=== PATIENT | female | born 1940 | race Caucasian/White ===

== ENCOUNTER → 2018-05-12 | Outpatient (CLI) | payer MEDICARE, BC | END | disposition home or self-care (01) | LOC: LABPAT 06:40 | PROVIDERS: ATTEND Orthopaedic Surgery | DX: Z01.812 Encounter for preprocedural laboratory examination (principal); M16.12 Unilateral primary osteoarthritis, left hip | CPT/HCPCS: 87070 ==

== ENCOUNTER → 2018-05-12 | Outpatient (CLI) | payer MEDICARE, BC ==
[2018-05-12 07:37] LABS: ALT 41 U/L (9-52); AST 27 U/L (14-36); Albumin 4.4 g/dL (3.5-5.0); Alkaline Phosphatase 65 U/L (38-126); Anion Gap 11 mmol/L; Blood Urea Nitrogen 13 mg/dL (7-17); Calcium 9.5 mg/dL (8.4-10.2); Carbon Dioxide 28 mmol/L (22-30); Chloride 103 mmol/L (98-107); Cholesterol 191 mg/dL (<200); Glucose 158 mg/dL (74-99); HDL Cholesterol 42 mg/dL (40-60); LDL Cholesterol,Calculated 96 mg/dL (0-99); Potassium 4.4 mmol/L (3.5-5.1); Sodium 142 mmol/L (137-145); Total Bilirubin 0.3 mg/dL (0.2-1.3); Total Protein 6.7 g/dL (6.3-8.2); Triglycerides 263 mg/dL (<150)
[2018-05-12 16:32] LABS: Hemoglobin A1C 6.6 % (4.0-6.0)
== END | disposition home or self-care (01) ==
LOC: LABWHC1 06:43
PROVIDERS: ATTEND Family Medicine
DX: E11.9 Type 2 diabetes mellitus without complications (principal); E78.5 Hyperlipidemia, unspecified
CPT/HCPCS: 36415; 80053; 80061; 83036

== ENCOUNTER → 2018-05-16 | Outpatient (CLI) | payer MEDICARE, BC ==
[2018-05-16 08:41] LABS: Basophils # (A) 0.1 k/uL (0-0.2); Basophils % (A) 1 %; Eosinophils # (A) 0.1 k/uL (0-0.7); Eosinophils % (A) 1 %; HCT 39.8 % (34.0-46.0); HGB 13.3 gm/dL (11.4-16.0); Lymphocytes # (A) 1.5 k/uL (1.0-4.8); Lymphocytes % (A) 28 %; MCH 30.3 pg (25.0-35.0); MCHC 33.5 g/dL (31.0-37.0); MCV 90.6 fL (80.0-100.0); Monocytes # (A) 0.3 k/uL (0-1.0); Monocytes % (A) 6 %; Neutrophils # (A) 3.4 k/uL (1.3-7.7); Neutrophils % (A) 63 %; Platelet Count 307 k/uL (150-450); RDW 13.1 % (11.5-15.5); WBC 5.4 k/uL (3.8-10.6)
== END | disposition home or self-care (01) ==
LOC: LABPAT 08:21
PROVIDERS: ATTEND Anesthesiology
DX: Z01.812 Encounter for preprocedural laboratory examination (principal); Z51.81 Encounter for therapeutic drug level monitoring; Z79.01 Long term (current) use of anticoagulants
CPT/HCPCS: 36415; 85025; 85610

== ENCOUNTER → 2018-05-16 | Outpatient (CLI) | payer MEDICARE, BC ==
--- NOTE | 2018-05-16 09:49 | US ---
EXAMINATION TYPE: US carotid duplex BILAT DATE OF EXAM: 05/16/2018 COMPARISON: NONE CLINICAL HISTORY: E78.5 HYPERLIPIDS,I71.4 AAA. Hyperlipids, pre op hip surgery EXAM MEASUREMENTS: RIGHT: Peak Systolic Velocity (PSV) cm/sec ----- Right CCA: 89.7 ----- Right ICA: 117.3 ----- Right ECA: 64.2 ICA/CCA ratio: 1.3 RIGHT: End Diastole cm/sec ----- Right CCA: 25.9 ----- Right ICA: 43.0 ----- Right ECA: 8.4 LEFT: Peak Systolic Velocity (PSV) cm/sec ----- Left CCA: 90.8 ----- Left ICA: 130.2 ----- Left ECA: 78.7 ICA/CCA ratio: 1.4 LEFT: End Diastole cm/sec ----- Left CCA: 25.9 ----- Left ICA: 43.0 ----- Left ECA: 12.8 VERTEBRALS (direction of flow): Right Vertebral: Antegrade Left Vertebral: Antegrade Rhythm: Normal Mild plaque bilateral bifurcations. No evidence of significant stenosis IMPRESSION: Mild degree of grayscale atheromatous plaquing with no sonographically evident hemodynam ically significant stenosis within either visualized carotid arterial system. However overall value s approach 50% stenosis for both the left and right internal carotid artery.
--- NOTE | 2018-05-16 09:50 | US ---
EXAMINATION TYPE: US duplex aorta DATE OF EXAM: 05/16/2018 COMPARISON: NONE CLINICAL HISTORY: I71.4 AAA. Hyperlipids, pre op hip surgery EXAM MEASUREMENTS: Abdominal Aorta: Proximal: 1.6 x 1.9cm Mid: 1.5 x 1.5cm Distal: 1.2 x 1.4cm Bifurcation: RT: 0.9 x 0.9cm LT: 0.8 x 0.8cm Calcifications noted throughout. No evidence of AAA at this time IMPRESSION: Calcific atheromatous change within the abdominal aorta with no sonographic evidence of a bdominal aortic aneurysm in the visualized portions of the abdominal aorta.
== END | disposition home or self-care (01) ==
LOC: RADUSWWP 08:30
PROVIDERS: ATTEND Family Medicine
DX: I70.0 Atherosclerosis of aorta (principal); I65.23 Occlusion and stenosis of bilateral carotid arteries; E78.5 Hyperlipidemia, unspecified
CPT/HCPCS: 93880; 93979

== ENCOUNTER 2018-05-22 05:33 | Inpatient (IN) | payer MEDICARE, BC ==
[2018-05-12 11:51] VITALS: BMI 25.7
--- NOTE | 2018-05-21 10:41 | HP ---
HISTORY AND PHYSICAL Deepti Wahl is a 77-year-old patient seen with symptomatic right hip osteoarthritis. Treatment options were discussed with her. She elected to proceed with direct anterior right total hip arthroplasty. Consent was obtained. Medical clearance provided by Dr. Gonzalez. PAST MEDICAL HISTORY: Uzn-[id number] diabetes, hypertension, hyperlipidemia. PAST SURGICAL HISTORY: Noncontributory. DAILY MEDICATIONS: Aspirin, Januvia, metformin, simvastatin, tramadol. ALLERGIES: ALLERGIES ARE CODEINE, DEMEROL, NSAID, CYMBALTA, LODINE. SOCIAL HISTORY: Patient denies current tobacco use. PHYSICAL EXAMINATION: Evaluation of the right hip, there is limited range of motion. Diffuse tenderness. The range of motion is with severe pain. Positive impingement sign. Straight leg raise negative. Distal neurovascular exam intact. RADIOGRAPHS: Which were obtained of the right hip reveals severe osteoarthritis. IMPRESSION: 1. Right hip osteoarthritis. 2. Hyperlipidemia. 3. Zkf-jbehpss-zcyhudyvn diabetes. 4. Hypertension. PLAN: Direct anterior right total hip arthroplasty. Surgery is 05/22/2018. MMODL / IJN: [id number] /
[~2018-05-22 05:33] MED LIST: ACETAMINOPHEN TAB 500 MG TAB PO ONE; DEXAMETHASONE SOD PHOSPHATE 10 MG/ML 1 ML VIAL IV ONE; MIDAZOLAM 2 MG/2 ML VIAL IV PRN; SCOPOLAMINE 1.5MG/72HR PATCH TRANSDERM ONE; TRANEXAMIC ACID 1,000 MG in SODIUM CHLORIDE 0.9% 50 ML IVPB ONE; ceFAZolin IN SWFI 2 GM/20 ML SYRINGE IVP ONE; fentaNYL (PF) 50 MCG/ML 2 ML AMP IV PRN
[2018-05-22] MEDS ORDERED: LIDOCAINE 1% 20 ML VIAL (10MG/ML) FOR IV START INTRADERMA ONE (06:38)
[2018-05-22] MEDS: LACTATED RINGERS 1,000 ML IV SCH ×3 (06:38→21:08)
[2018-05-22 06:54] LABS: Glucose,Whole Blood 167 mg/dL (75-99)
[2018-05-22] MEDS: ONDANSETRON 4 MG/2 ML VIAL IVP ONE ×2 (07:00→10:05)
[2018-05-22] MEDS ORDERED: ROPIVACAINE 246.25 MG, EPINEPHrine 0.5 MG, KETOROLAC 30 MG, cloNIDine HCL/PF 80 MCG, WA... MISCELLANE ONE ×5 (07:20)
[2018-05-22] MEDS ORDERED: diphenhydrAMINE 50 MG/ML 1 ML VIAL ONE (07:29)
[2018-05-22] MEDS ORDERED: fentaNYL (PF) 50 MCG/ML 2 ML AMP ONE (07:29)
[2018-05-22] MEDS ORDERED: MIDAZOLAM 2 MG/2 ML VIAL ONE (07:29)
[2018-05-22] MEDS ORDERED: PROPOFOL 10 MG/ML 20 ML VIAL IV ONE (07:29)
[2018-05-22] MEDS ORDERED: ePHEDrine SULFATE/0.9% NACL/PF 50 MG/5 ML SYRINGE IV ONE (07:29)
[2018-05-22] MEDS ORDERED: ceFAZolin 3,000 MG in SODIUM CHLORIDE 0.9% IRRIGATIO 3,000 ML IRRIGATION ONE (08:08)
[2018-05-22] MEDS ORDERED: LACTATED RINGERS 1,000 ML IV ONE ×2 (09:04)
[2018-05-22] MEDS ORDERED: HYDROmorphone 0.5 MG/0.5 ML SYRINGE IVP PRN ×3 (09:38)
[2018-05-22] MEDS ORDERED: NALOXONE 0.4 MG/ML 1 ML VIAL IV PRN (09:38)
[2018-05-22] MEDS ORDERED: HYDROcodone/APAP 7.5-325MG 1 EACH TAB PO PRN ×2 (09:38)
--- NOTE | 2018-05-22 09:38 | P.OP ---
Date of Procedure: 05/22/18 Preoperative Diagnosis: Right hip osteoarthritis Postoperative Diagnosis: Right hip osteoarthritis Procedure(s) Performed: Direct anterior right total hip arthroplasty Implants: 1. Depuy Corail KA size 10 standard collar press-fit femoral stem 2. Depuy pinnacle acetabular shell press-fit 54 mm 3. Depuy pinnacle polyethylene acetabular liner 36 mm ID 54 mm OD 4. Depuy metal femoral head 36 mm -2 Anesthesia: local, spinal Surgeon: Rashid Livingston Sales Account Associate #1: Ray Curtis Estimated Blood Loss (ml): 600 Pathology: other (Heidi head) Condition: stable Disposition: PACU Indications for Procedure: 77-year-old patient seen with symptomatic right hip osteoarthritis. After having treatment options discussed, she elected to proceed with total hip arthroplasty. Operative Findings: See description of procedure Description of Procedure: The patient was taken to the operative suite. Patient underwent a spinal anesthetic by the department of anesthesia. Patient was then transferred to the [place] table. Patient was given preoperative IV antibiotics and TXA. Both lower extremities were placed in standard leg spars. The hip was then prepped and draped in the normal sterile orthopedic fashion. A standard anterior incision was made beginning 3 cm lateral and 1 cm distal to the ASIS extending 10 cm. Dissection was then carried down through the subcutaneous soft tissues down to the fascia overlying the tensor fascia tory. An incision was now made through the fascia. Careful dissection was taken down exposing the tensor fascia tory muscle. A Cobra retractor was now placed along the medial femoral neck and a second one along the lateral femoral neck. The venous circumflex vessels were now identified, cauterized and clipped. We identified the anterior hip capsule. An incision was made through the hip capsule along the lateral border. Tag sutures were then placed along the anterior capsule and lateral capsule. We then performed a capsulotomy. Retractors were now placed around the femoral neck itself. A Cobra retractor was now placed along the anterior acetabulum. Good exposure was now noted of the femoral head/neck complex. Residual labrum was debrided out. We placed the extremity into 3 turns of fine traction. We were then able to introduce a skid in between the femoral head and acetabulum. A placed a awl into the femoral head. We took 2 turns of traction off the extremity. Rotation was now released. The femoral head was then dislocated without difficulty. Additional releasing was performed of the capsule. The head was then reduced. All traction was released. A femoral neck cut was now made with a sagittal saw. It was completed with an osteotome at the lateral neck area. The femoral head was now removed without difficulty. The extremity was now rotated to 45 of external rotation. It was locked in position. Residual labrum was now debrided out. Serial reaming was performed of the acetabulum. Once we reached the appropriate size and a trial was position and fit nicely. The appropriate size was now chosen opened and made available. The wound was irrigated with pulse lavage mechanical irrigation. Acetabular component was introduced into the acetabulum without difficulty. The C-arm/fluoroscopy was now brought into the operative field. We made sure we had a true AP pelvic view. We now under direct C-arm/fluoroscopy introduced into the acetabular component with appropriate version and inclination. It was well seated and stable. The C-arm was pulled back. An appropriate liner was introduced and clicked into position. It was felt to be stable. At this point retractors were removed. The extremity was now placed into 120 external rotation with no traction. The leg was now dropped to the ground and adducted. Appropriate retractors were now positioned along the proximal femur. We also placed our femoral look into position. Additional capsular releasing was performed to gain access to the proximal femur. We now used a box osteotome. A canal finder was now utilized. Serial broaching was now performed until we reached the appropriate size with good overall rotational stability. Appropriate calcar planing was performed. A trial head/neck was placed into position. The hip was now reduced. The C-arm /fluoroscopy was brought back into the operative field. A spot film was obtained of the nonoperative hip. A spot film was obtained of the trial components. Overlays were performed, we noted good overall alignment and positioning for determining leg length. The C-arm/fluoroscopy was pulled back. Retractors were repositioned and the hip was dislocated. The leg was again taken down to the ground and adducted. Appropriate retractors were repositioned as well as the femoral hook. All trial components were removed. The femoral implant was opened along with the femoral head. The wound was irrigated with pulse lavage mechanical irrigation. The deep soft tissues were infiltrated with local analgesic. The femoral implant was introduced with good purchase and fixation noted. The femoral head was introduced with good positioning and fixation noted. Retractors were now removed. The hip was now reduced. There appeared be good positioning of the hip. This was confirmed under direct fluoroscopy spot films were obtained to document that. A second gram of TXA was given. The wound was irrigated with pulse lavage mechanical irrigation. Bipolar cautery had been utilized intermittently through the procedure for hemostasis. The wound was irrigated copiously with pulse lavage mechanical irrigation. The fascia was repaired with Vicryl suture. The subcutaneous soft tissues were repaired in layers with Vicryl suture. The skin was approximated with pernio/Dermabond. Sterile dressings were applied. Patient was then awakened, transferred to a bed and taken to recovery in stable condition. Ray ESTRADA assisted with the procedure.
--- NOTE | 2018-05-22 09:46 | FL ---
EXAMINATION TYPE: FL guidance operating room, XR Hip Limited RT DATE OF EXAM: 05/22/2018 CLINICAL HISTORY: Right hip arthroplasty. Right hip pain. TECHNIQUE: Fluoroscopy. COMPARISON: None. FINDINGS/IMPRESSION: Fluoroscopic guidance was provided during procedure performed by Dr. Livingston. A total of 21 seconds of fluoroscopic time was utilized during the procedure and 3 spot images was acquired during a total right hip arthroplasty.
[2018-05-22] MEDS: HYDROmorphone 0.5 MG/0.5 ML SYRINGE IVP ONE ×2 (10:04→10:12)
[2018-05-22 10:11] LABS: Glucose,Whole Blood 182 mg/dL (75-99)
[2018-05-22] MEDS: traMADol 50 MG TAB PO SCH ×3 (13:15→21:16)
[2018-05-22] MEDS: ONDANSETRON 4 MG/2 ML VIAL IVP PRN (13:16)
[2018-05-22] MEDS ORDERED: POLYETHYLENE GLYCOL 3350 17 GM POWD.PACK PO PRN (14:00)
[2018-05-22 17:01] LABS: Glucose,Whole Blood 226 mg/dL (75-99)
[2018-05-22] MEDS: ceFAZolin IN SWFI 2 GM/20 ML SYRINGE IVP SCH ×2 (17:21→23:00)
[2018-05-22] MEDS: INSULIN ASPART 100 UNIT/ML 1 ML 10 ML VIAL SQ SCH ×2 (17:55→21:06)
[2018-05-22 20:07] LABS: Glucose,Whole Blood 207 mg/dL (75-99)
[2018-05-22] MEDS: traMADol 50 MG TAB PO PRN (21:05)
[2018-05-22] MEDS: SENNOSIDES-DOCUSATE SODIUM 1 EACH TAB PO SCH (21:06)
[2018-05-22] MEDS: LACTATED RINGERS 250 ML IV SCH ×2 (21:14→21:15)
[2018-05-23] MEDS: LACTATED RINGERS 1,000 ML IV SCH ×3 (05:28→20:10)
[2018-05-23] MEDS: traMADol 50 MG TAB PO PRN (06:32)
[2018-05-23 06:59] LABS: Glucose,Whole Blood 131 mg/dL (75-99)
[2018-05-23] MEDS: INSULIN ASPART 100 UNIT/ML 1 ML 10 ML VIAL SQ SCH ×4 (07:36→20:09)
[2018-05-23] MEDS: traMADol 50 MG TAB PO SCH ×4 (08:53→21:28)
--- NOTE | 2018-05-23 08:55 | P.PN ---
Subjective Progress Note Date: 05/23/18 Principal diagnosis: Status post right total hip arthroplasty Patient is seen today resting in her hospital bed, she appears comfortable. She did have some increasing pain yesterday, this has improved. She denies any headaches, creams, chest pain or shortness breath. Objective - Vital Signs Vital signs: Vital Signs Temp 98.3 F 05/23/18 06:54 Pulse 85 05/23/18 06:54 Resp 12 05/23/18 06:54 BP 106/61 05/23/18 06:54 Pulse Ox 97 05/23/18 06:54 Intake & Output 05/22/18 05/23/18 05/23/18 18:59 06:59 18:59 Intake Total 1351 818 Output Total 900 Balance 451 818 Weight 63.957 kg Intake: IV 1351 Intake, IV Titration 700 Amount Lactated Ringers 1,000 ml 700 @ 100 mls/hr IV .Q10H [facility] Rx#:[id number] Oral 118 Output: Urine 300 Estimated Blood Loss 600 Other: Voiding Method Bedside Commode # Voids 1 - Exam Right lower extremity: Incision is clean, dry, and intact. The prineo tape is in good condition. There is minimal soft tissue swelling and ecchymosis surrounding the medial and lateral aspects of the incision. Calf is soft, no tenderness with palpation. Plantar flexion, dorsiflexion, EHL, FHL are intact. Sensory exam to light touch throughout the extremity is intact, dorsal pedis pulses 2+. - Labs Labs: Abnormal Lab Results - Last 24 Hours (Table) 05/22/18 05/22/18 05/22/18 Range/Units 10:10 16:58 20:04 POC Glucose (mg/dL) 182 H 226 H 207 H (75-99) mg/dL 05/23/18 Range/Units 06:53 POC Glucose (mg/dL) 131 H (75-99) mg/dL Assessment and Plan Plan: Assessment: 1. Postop day #1 status post right total hip arthroplasty Plan: Pain control, continue supportive oral medication GI and DVT prophylaxis, continue subcu medication Wound care instructions discussed Continue therapy Medical recommendations Encourage incentive spirometer Discharge planning: Patient will likely be discharged to rehab in next few days Time with Patient: Less than 30
[2018-05-23] MEDS: ATORVASTATIN 10 MG TAB PO SCH (08:56)
[2018-05-23] MEDS: LINAGLIPTIN 5 MG TABLET PO SCH (08:56)
[2018-05-23] MEDS: FAMOTIDINE 20 MG TAB PO SCH (08:57)
[2018-05-23] MEDS: ENOXAPARIN 40 MG/0.4 ML SYRINGE SQ SCH (08:57)
[2018-05-23] MEDS: MELOXICAM 7.5 MG TAB PO SCH (08:57)
[2018-05-23] MEDS: metFORMIN 500 MG TAB PO SCH (08:58)
--- NOTE | 2018-05-23 09:14 | P.CONS ---
History of Present Illness - Reason for Consult Consult date: 05/23/18 Medical Management Requesting physician: Rashid Livingston - Chief Complaint s/p right FELIX - History of Present Illness 77-year-old female who underwent elective right total hip arthroplasty on 05/22/[address]. Gonzalez was consulted for medical management. The patient has a history of diabetes mellitus, fibromyalgia, back pain, and anxiety. The patient is a former cigarette smoker and quit smoking in 1989. The patient was seen and examined at the bedside. The patient is awake and alert laying in bed. She states she was up this morning walking and was feeling well and her pain was minimal. She reports a couple hours later she began to have a significant increase in her pain and required medication. She states her pain at this time is tolerable. She denies chest pain or shortness of breath. She remains hemodynamically stable. She is afebrile. She is on room air with oxygen saturations greater than 92%. Incentive spirometer is at the bedside and patient reports using 10 times an hour. She is tolerating PO intake and denies nausea or vomiting. Dressing to right hip is clean dry and intact. The patient reports she is going to subacute rehab at [facility] on . Review of Systems Those systems with pertinent positive or pertinent negative responses have been documented in the HPI Past Medical History Past Medical History: Diabetes Mellitus, Fibromyalgia Additional Past Medical History / Comment(s): arthralgia, back pain, hx vertigo. , uses cane prn. History of Any Multi-Drug Resistant Organisms: None Reported Past Surgical History: No Surgical Hx Reported Additional Past Surgical History / Comment(s): cataracts Past Anesthesia/Blood Transfusion Reactions: No Reported Reaction, Motion Sickness Past Psychological History: No Psychological Hx Reported Additional Psychological History / Comment(s): recent anxiety Smoking Status: Former smoker Past Alcohol Use History: None Reported Additional Past Alcohol Use History / Comment(s): QUIT SMOKING 1989, SMOKED 1 PPD. SMOKED 10 YRS OR MORE. Past Drug Use History: None Reported - Past Family History Mother Family Medical History: Pulmonary Embolus Medications and Allergies Home Medications Medication Instructions Recorded Confirmed Type Aspirin 81 mg PO DAILY 11/13/14 05/22/18 History L.acidoph/B.long/L.plant/B.lac 1 tab PO DAILY 11/13/14 05/22/18 History [Probiotic Acidophilus Beads] traMADol HCl [Ultram] 50 mg PO Q8HR PRN 11/13/14 05/22/18 History metFORMIN HCL [Glucophage] 500 mg PO QAM 02/13/15 05/22/18 History Methylprednisone Injection 1 dose PO DIRECTED 05/12/18 05/22/18 History Multivit-Min/FA/Lycopen/Lutein 1 tab PO DAILY 05/12/18 05/22/18 History [Centrum Silver Tablet] Polyethylene Glycol 3350 [Miralax] 17 gm PO DAILY PRN 05/12/18 05/22/18 History Simvastatin [Zocor] 20 mg PO DAILY 05/12/18 05/22/18 History Timolol 0.5% Ophth Soln [Timoptic 1 drop RIGHT EYE DAILY 05/12/18 05/22/18 History 0.5% Ophth Soln] sitaGLIPtin [Januvia] 100 mg PO DAILY 05/12/18 05/22/18 History Allergies Allergy/AdvReac Type Severity Reaction Status Date / Time codeine Allergy Nausea & Verified 05/22/18 09:56 Vomiting & Diarrhea, Headache meperidine HCl [From Demerol] Allergy Nausea & Verified 05/22/18 09:56 Vomiting & Diarrhea, Headache acetaminophen [From Tylenol] AdvReac Unknown Nausea Verified 05/22/18 09:56 duloxetine [From Cymbalta] AdvReac Unknown Nausea & Verified 05/22/18 09:56 Vomiting & Diarrhea, Headache NSAIDS (Non-Steroidal AdvReac Unknown Nausea & Verified 05/22/18 09:56 Anti-Inflamma Vomiting & Diarrhea etodolac AdvReac Nausea & Verified 05/22/18 09:56 Vomiting & Diarrhea, Headache Physical Exam Vitals: Vital Signs Temp Pulse Resp BP BP Pulse Ox 05/23/18 06:54 98.3 F 85 12 106/61 97 05/23/18 00:27 97.9 F 87 16 106/51 97 05/22/18 21:53 104/50 05/22/18 19:30 97.1 F L 88 14 96/53 94 L 05/22/18 15:45 16 05/22/18 14:50 85 16 118/56 95 05/22/18 13:00 82 110/69 93 L 05/22/18 12:59 79 113/71 98 05/22/18 12:00 79 114/70 98 05/22/18 11:45 78 136/78 98 05/22/18 11:30 81 134/76 98 05/22/18 11:15 80 129/72 05/22/18 11:05 16 05/22/18 11:00 86 118/83 05/22/18 10:45 81 127/75 92 L 05/22/18 10:30 51 L 16 117/63 93 L 05/22/18 10:16 74 16 122/58 95 05/22/18 10:00 76 16 127/62 98 05/22/18 09:48 976 F H 86 16 123/58 97 Intake and Output 05/22/18 05/23/18 05/23/18 22:59 06:59 14:59 Intake Total 118 700 Output Total 300 Balance -182 700 Intake: Intake, IV Titration 700 Amount Lactated Ringers 1,000 ml 700 @ 100 mls/hr IV .Q10H [facility] Rx#:[id number] Oral 118 Output: Urine 300 Other: Voiding Method Bedside Commode # Voids 1 1 GENERAL: This is a 77-year-old female in no apparent distress at the time of examination. Pleasant and cooperative. HEENT: Head is atraumatic, normocephalic. Pupils are equal, round, and reactive to light. Sclerae anicteric. Conjunctivae are clear. Mucus membranes of the mouth are moist. Neck is supple. RESPIRATORY: Clear to ausculation. No wheezes, rales, or rhonchi. No use of accessory muscles. Patient maintaining oxygen saturation greater than 92%. No chest wall tenderness is noted on palpation or with deep breathing. CARDIOVASCULAR: Regular rate and rhythm. S1 and S2 noted. No systolic or diastolic murmur auscultated. No JVD noted. No S3 or S4 noted. GASTROINTESTINAL: No distention noted. Abdomen soft and round. Normal active bowel sounds auscultated x 4 quadrants. No pain or tenderness noted upon palpation. INTEGUMENTARY: Dressing to right hip clean dry and intact. No drainage noted. No cyanosis. No jaundice. No rashes noted. No cellulitis noted. EXTREMITIES: 2+ peripheral pulses. No evidence of peripheral edema. No calf tenderness noted. NEUROLOGIC: Cranial nerves II-XII intact. PSYCHIATRIC: Awake, alert, and oriented X 3. Appropriate affect. Intact judgement and insight. Results Results: ASSESSMENT: Osteoarthritis, s/p right total hip arthroplasty, POD #1 Diabetes mellitus, type II Hyperlipidemia History of fibromyalgia Nicotine dependence, in remission, patient quit smoking in 1989 PLAN: Continue postoperative surgical care per orthopedics Pain control Activity as tolerated Incentive spirometer 10 times an hour while awake Home meds as appropriate GI prophylaxis: Pepcid 20 mg by mouth daily DVT prophylaxis: Lovenox 40 mg subcu daily Monitor vital signs and address as appropriate Discharge planning: Subacute rehab at [facility] on Further recommendations pending patient's course Thank you for this consultation. We will continue to follow with Deepti during her hospital stay Nurse practitioner note has been reviewed by physician. Signing provider agrees with the documented findings, assessment, and plan of care. Labs: Abnormal Lab Results - Last 24 Hours (Table) 05/22/18 05/22/18 05/22/18 Range/Units 10:10 16:58 20:04 POC Glucose (mg/dL) 182 H 226 H 207 H (75-99) mg/dL 05/23/18 Range/Units 06:53 POC Glucose (mg/dL) 131 H (75-99) mg/dL
[2018-05-23] MEDS: TIMOLOL 0.5% OPHTH DROPS 5 ML BTL RIGHT EYE SCH (09:25)
[2018-05-23 09:52] LABS: Basophils % (A) 0 %; Eosinophils % (A) 0 %; HCT 27.3 % (34.0-46.0); Lymphocytes # (A) 2.3 k/uL (1.0-4.8); Lymphocytes % (A) 23 %; MCH 30.4 pg (25.0-35.0); MCHC 33.4 g/dL (31.0-37.0); Mean Platelet Volume 6.8; Monocytes # (A) 0.5 k/uL (0-1.0); Monocytes % (A) 5 %; Neutrophils # (A) 7.4 k/uL (1.3-7.7); Neutrophils % (A) 72 %; Platelet Count 278 k/uL (150-450); RDW 13.1 % (11.5-15.5); WBC 10.3 k/uL (3.8-10.6)
[2018-05-23 09:55] LABS: HGB 9.1 gm/dL (11.4-16.0)
[2018-05-23 11:05] LABS: Glucose,Whole Blood 142 mg/dL (75-99)
[2018-05-23] MEDS: LACTOBACILLUS ACIDOPH & BULGAR 1 EACH PACKET PO SCH (11:13)
[2018-05-23 16:36] LABS: Hemoglobin A1C 6.7 % (4.0-6.0)
[2018-05-23 16:55] LABS: Glucose,Whole Blood 162 mg/dL (75-99)
[2018-05-23 20:02] LABS: Glucose,Whole Blood 172 mg/dL (75-99)
[2018-05-23] MEDS: SENNOSIDES-DOCUSATE SODIUM 1 EACH TAB PO SCH (20:11)
[2018-05-24] MEDS ORDERED: ONDANSETRON 4 MG/2 ML VIAL ONE (04:55)
[2018-05-24] MEDS: LACTATED RINGERS 1,000 ML IV SCH ×3 (05:51→17:39)
[2018-05-24 07:17] LABS: Glucose,Whole Blood 118 mg/dL (75-99)
[2018-05-24] MEDS: INSULIN ASPART 100 UNIT/ML 1 ML 10 ML VIAL SQ SCH ×4 (07:37→21:11)
[2018-05-24] MEDS ORDERED: ACETAMINOPHEN TAB 325 MG TAB PO PRN (08:24)
[2018-05-24] MEDS: FAMOTIDINE 20 MG TAB PO SCH (08:33)
[2018-05-24] MEDS: ATORVASTATIN 10 MG TAB PO SCH (08:33)
[2018-05-24] MEDS: ENOXAPARIN 40 MG/0.4 ML SYRINGE SQ SCH (08:33)
[2018-05-24] MEDS: LINAGLIPTIN 5 MG TABLET PO SCH (08:34)
[2018-05-24] MEDS: MELOXICAM 7.5 MG TAB PO SCH (08:34)
[2018-05-24] MEDS: metFORMIN 500 MG TAB PO SCH (08:34)
[2018-05-24] MEDS: TIMOLOL 0.5% OPHTH DROPS 5 ML BTL RIGHT EYE SCH (08:35)
[2018-05-24] MEDS: traMADol 50 MG TAB PO SCH ×4 (08:36→21:20)
[2018-05-24] MEDS: ONDANSETRON 4 MG/2 ML VIAL IVP PRN (08:41)
[2018-05-24 08:55] LABS: Basophils % (A) 0 %; Eosinophils # (A) 0.1 k/uL (0-0.7); Eosinophils % (A) 1 %; HCT 23.1 % (34.0-46.0); HGB 7.8 gm/dL (11.4-16.0); Lymphocytes # (A) 1.2 k/uL (1.0-4.8); Lymphocytes % (A) 20 %; MCH 30.3 pg (25.0-35.0); MCHC 33.5 g/dL (31.0-37.0); MCV 90.4 fL (80.0-100.0); Mean Platelet Volume 6.9; Monocytes # (A) 0.4 k/uL (0-1.0); Monocytes % (A) 7 %; Neutrophils # (A) 4.4 k/uL (1.3-7.7); Neutrophils % (A) 71 %; Platelet Count 197 k/uL (150-450); RBC 2.56 m/uL (3.80-5.40); WBC 6.1 k/uL (3.8-10.6)
[2018-05-24 09:11] LABS: Anion Gap 8 mmol/L; Blood Urea Nitrogen 7 mg/dL (7-17); Carbon Dioxide 28 mmol/L (22-30); Chloride 101 mmol/L (98-107); Glucose 110 mg/dL (74-99); Potassium 3.7 mmol/L (3.5-5.1); Sodium 137 mmol/L (137-145)
--- NOTE | 2018-05-24 10:32 | P.PN ---
Subjective Progress Note Date: 05/24/18 77-year-old female who underwent elective right total hip arthroplasty on 05/22/[address] Gonzalez was consulted for medical management. The patient has a history of diabetes mellitus, fibromyalgia, back pain, and anxiety. The patient is a former cigarette smoker and quit smoking in 1989. 05/23/2018 The patient was seen and examined at the bedside. The patient is awake and alert laying in bed. She states she was up this morning walking and was feeling well and her pain was minimal. She reports a couple hours later she began to have a significant increase in her pain and required medication. She states her pain at this time is tolerable. She denies chest pain or shortness of breath. She remains hemodynamically stable. She is afebrile. She is on room air with oxygen saturations greater than 92%. Incentive spirometer is at the bedside and patient reports using 10 times an hour. She is tolerating PO intake and denies nausea or vomiting. Dressing to right hip is clean dry and intact. The patient reports she is going to subacute rehab at [facility] on . 05/24/2018 Patient seen and examined at the bedside. Patient states she has been nausea all night and does not feel well this morning. She states she feels dizzy every time she gets up to ambulate. She has IV fluids infusing at 100cc/hr. She states she has been urinating often without difficulty. Patient was in the 80s on room air this morning and nasal cannula was applied. Febrile at 100.2 this AM. BP 110/71. Objective - Vital Signs Vital signs: Vital Signs Temp 100.2 F H 05/24/18 08:23 Pulse 94 05/24/18 08:23 Resp 18 05/24/18 08:23 BP 110/71 05/24/18 08:23 Pulse Ox 90 L 05/24/18 08:23 Intake & Output 05/23/18 05/24/18 05/24/18 18:59 06:59 18:59 Intake Total 800 1720 Balance 800 1720 Intake: Intake, IV Titration 800 1600 Amount Lactated Ringers 1,000 ml 800 1600 @ 100 mls/hr IV .Q10H [facility] Rx#:[id number] Oral 120 Other: # Voids 2 2 - Exam GENERAL: This is a 77-year-old female in no apparent distress at the time of examination. Pleasant and cooperative. HEENT: Head is atraumatic, normocephalic. Pupils are equal, round, and reactive to light. Sclerae anicteric. Conjunctivae are clear. Mucus membranes of the mouth are moist. Neck is supple. RESPIRATORY: Clear to ausculation. No wheezes, rales, or rhonchi. No use of accessory muscles. Patient maintaining oxygen saturation greater than 92%. No chest wall tenderness is noted on palpation or with deep breathing. CARDIOVASCULAR: Regular rate and rhythm. S1 and S2 noted. No systolic or diastolic murmur auscultated. No JVD noted. No S3 or S4 noted. GASTROINTESTINAL: No distention noted. Abdomen soft and round. Normal active bowel sounds auscultated x 4 quadrants. No pain or tenderness noted upon palpation. INTEGUMENTARY: Patient appears pale overall. Dressing to right hip clean dry and intact. No drainage noted. No cyanosis. No jaundice. No rashes noted. No cellulitis noted. EXTREMITIES: 2+ peripheral pulses. No evidence of peripheral edema. No calf tenderness noted. NEUROLOGIC: Cranial nerves II-XII intact. PSYCHIATRIC: Awake, alert, and oriented X 3. Appropriate affect. Intact judgement and insight. - Labs CBC & Chem 7: 05/24/18 08:35 05/24/18 08:35 Labs: Abnormal Lab Results - Last 24 Hours (Table) 05/23/18 05/23/18 05/23/18 Range/Units 09:13 11:02 16:52 RBC (3.80-5.40) m/uL Hgb (11.4-16.0) gm/dL Hct (34.0-46.0) % Creatinine (0.52-1.04) mg/dL Glucose (74-99) mg/dL POC Glucose (mg/dL) 142 H 162 H (75-99) mg/dL Hemoglobin A1c 6.7 H (4.0-6.0) % Calcium (8.4-10.2) mg/dL 05/23/18 05/24/18 05/24/18 Range/Units 19:59 07:09 08:35 RBC 2.56 L (3.80-5.40) m/uL Hgb 7.8 L (11.4-16.0) gm/dL Hct 23.1 L (34.0-46.0) % Creatinine (0.52-1.04) mg/dL Glucose (74-99) mg/dL POC Glucose (mg/dL) 172 H 118 H (75-99) mg/dL Hemoglobin A1c (4.0-6.0) % Calcium (8.4-10.2) mg/dL 05/24/18 Range/Units 08:35 RBC (3.80-5.40) m/uL Hgb (11.4-16.0) gm/dL Hct (34.0-46.0) % Creatinine 0.49 L (0.52-1.04) mg/dL Glucose 110 H (74-99) mg/dL POC Glucose (mg/dL) (75-99) mg/dL Hemoglobin A1c (4.0-6.0) % Calcium 8.0 L (8.4-10.2) mg/dL Assessment and Plan Plan: ASSESSMENT: Osteoarthritis, s/p right total hip arthroplasty, POD #2 Anemia, suspect due to acute blood loss, hemoglobin 7.8 Diabetes mellitus, type II Hyperlipidemia History of fibromyalgia Nicotine dependence, in remission, patient quit smoking in 1989 PLAN: Continue postoperative surgical care per orthopedics Pain control Activity as tolerated Incentive spirometer 10 times an hour while awake Transfuse 1 unit RBC. Repeat hemoglobin in AM Continue IV fluids but will decrease to 50cc/hr Wean oxygen as tolerated to maintain sats greater than 92% Chest x-ray Continue anti-emetics Home meds as appropriate GI prophylaxis: Pepcid 20 mg by mouth daily DVT prophylaxis: Lovenox 40 mg subcu daily Monitor vital signs and address as appropriate Discharge planning: Subacute rehab at [facility] Further recommendations pending patient's course Nurse practitioner note has been reviewed by physician. Signing provider agrees with the documented findings, assessment, and plan of care.
--- NOTE | 2018-05-24 10:54 | P.PN ---
Subjective Progress Note Date: 05/24/18 Principal diagnosis: Status post right total hip arthroplasty Patient is seen today resting in her hospital bed, she appears comfortable. Early this morning patient developed severe nausea, it is slightly improving. She remains on IV fluids at this time. She denies any headaches, chest pain or shortness breath. Objective - Vital Signs Vital signs: Vital Signs Temp 100.2 F H 05/24/18 08:23 Pulse 94 05/24/18 08:23 Resp 18 05/24/18 08:23 BP 110/71 05/24/18 08:23 Pulse Ox 90 L 05/24/18 08:23 Intake & Output 05/23/18 05/24/18 05/24/18 18:59 06:59 18:59 Intake Total 800 1720 Balance 800 1720 Intake: Intake, IV Titration 800 1600 Amount Lactated Ringers 1,000 ml 800 1600 @ 100 mls/hr IV .Q10H [facility] Rx#:[id number] Oral 120 Other: # Voids 2 2 - Exam Right lower extremity: Incision is clean, dry, and intact. The prineo tape is in good condition. There is minimal soft tissue swelling and ecchymosis surrounding the medial and lateral aspects of the incision. Calf is soft, no tenderness with palpation. Plantar flexion, dorsiflexion, EHL, FHL are intact. Sensory exam to light touch throughout the extremity is intact, dorsal pedis pulses 2+. - Labs CBC & Chem 7: 05/24/18 08:35 05/24/18 08:35 Labs: Abnormal Lab Results - Last 24 Hours (Table) 05/23/18 05/23/18 05/23/18 Range/Units 09:13 11:02 16:52 RBC (3.80-5.40) m/uL Hgb (11.4-16.0) gm/dL Hct (34.0-46.0) % Creatinine (0.52-1.04) mg/dL Glucose (74-99) mg/dL POC Glucose (mg/dL) 142 H 162 H (75-99) mg/dL Hemoglobin A1c 6.7 H (4.0-6.0) % Calcium (8.4-10.2) mg/dL 05/23/18 05/24/18 05/24/18 Range/Units 19:59 07:09 08:35 RBC 2.56 L (3.80-5.40) m/uL Hgb 7.8 L (11.4-16.0) gm/dL Hct 23.1 L (34.0-46.0) % Creatinine (0.52-1.04) mg/dL Glucose (74-99) mg/dL POC Glucose (mg/dL) 172 H 118 H (75-99) mg/dL Hemoglobin A1c (4.0-6.0) % Calcium (8.4-10.2) mg/dL 05/24/18 Range/Units 08:35 RBC (3.80-5.40) m/uL Hgb (11.4-16.0) gm/dL Hct (34.0-46.0) % Creatinine 0.49 L (0.52-1.04) mg/dL Glucose 110 H (74-99) mg/dL POC Glucose (mg/dL) (75-99) mg/dL Hemoglobin A1c (4.0-6.0) % Calcium 8.0 L (8.4-10.2) mg/dL Assessment and Plan Plan: Assessment: 1. Postop day #2 status post right total hip arthroplasty Plan: Pain control, continue supportive oral medication GI and DVT prophylaxis, continue subcu medication Wound care instructions discussed Continue therapy Medical recommendations Encourage incentive spirometer Discharge planning: Hopeful discharge to rehab tomorrow Time with Patient: Less than 30
[2018-05-24 11:26] LABS: Glucose,Whole Blood 148 mg/dL (75-99)
[2018-05-24] MEDS: LACTOBACILLUS ACIDOPH & BULGAR 1 EACH PACKET PO SCH (12:31)
--- NOTE | 2018-05-24 13:02 | XR ---
EXAMINATION TYPE: XR chest 2V DATE OF EXAM: 05/24/2018 COMPARISON: 11/13/2014 HISTORY: 77-year-old female hypoxia TECHNIQUE: PA and lateral views FINDINGS: Heart normal size. Aorta and pulmonary vasculature are within normal limits. Mild interstitial promin ence as a chronic appearance. No significant pleural effusion seen on the lateral view. There is some mild patchy right mid and lower lung density. IMPRESSION: Patchy right mid and lower lung density could represent areas of atelectasis or developing pneumonia. Clinically correlate. Follow-up could be considered.
[2018-05-24 16:52] LABS: Glucose,Whole Blood 145 mg/dL (75-99)
[2018-05-24 18:47] LABS: Basophils % (A) 1 %; Eosinophils % (A) 0 %; HCT 30.2 % (34.0-46.0); Lymphocytes # (A) 2.1 k/uL (1.0-4.8); Lymphocytes % (A) 28 %; MCH 29.8 pg (25.0-35.0); MCHC 33.2 g/dL (31.0-37.0); MCV 89.6 fL (80.0-100.0); Mean Platelet Volume 6.7; Monocytes # (A) 0.4 k/uL (0-1.0); Monocytes % (A) 5 %; Neutrophils # (A) 4.9 k/uL (1.3-7.7); Neutrophils % (A) 65 %; Platelet Count 217 k/uL (150-450); RBC 3.37 m/uL (3.80-5.40); RDW 13.8 % (11.5-15.5); WBC 7.6 k/uL (3.8-10.6)
[2018-05-24 18:53] LABS: Anion Gap 6 mmol/L; Blood Urea Nitrogen 7 mg/dL (7-17); Calcium 8.6 mg/dL (8.4-10.2); Carbon Dioxide 29 mmol/L (22-30); Chloride 101 mmol/L (98-107); Glucose 123 mg/dL (74-99); Potassium 3.7 mmol/L (3.5-5.1); Sodium 136 mmol/L (137-145)
[2018-05-24 20:39] LABS: Glucose,Whole Blood 121 mg/dL (75-99)
[2018-05-24] MEDS: SENNOSIDES-DOCUSATE SODIUM 1 EACH TAB PO SCH (21:20)
[2018-05-25] MEDS: ONDANSETRON 4 MG/2 ML VIAL IVP PRN (00:13)
[2018-05-25] MEDS: LACTATED RINGERS 1,000 ML IV SCH (05:39)
[2018-05-25 06:56] LABS: Glucose,Whole Blood 96 mg/dL (75-99)
[2018-05-25] MEDS: INSULIN ASPART 100 UNIT/ML 1 ML 10 ML VIAL SQ SCH ×4 (07:12→22:33)
[2018-05-25 07:27] LABS: Basophils % (A) 0 %; Eosinophils # (A) 0.1 k/uL (0-0.7); Eosinophils % (A) 1 %; HCT 29.5 % (34.0-46.0); HGB 9.6 gm/dL (11.4-16.0); Lymphocytes # (A) 1.8 k/uL (1.0-4.8); Lymphocytes % (A) 26 %; MCH 29.3 pg (25.0-35.0); MCHC 32.7 g/dL (31.0-37.0); MCV 89.7 fL (80.0-100.0); Mean Platelet Volume 7.1; Monocytes # (A) 0.5 k/uL (0-1.0); Monocytes % (A) 7 %; Neutrophils # (A) 4.3 k/uL (1.3-7.7); Neutrophils % (A) 64 %; Platelet Count 193 k/uL (150-450); RBC 3.29 m/uL (3.80-5.40); RDW 13.9 % (11.5-15.5); WBC 6.7 k/uL (3.8-10.6)
[2018-05-25] MEDS ORDERED: ONDANSETRON 4 MG/2 ML VIAL IVP PRN (08:15)
[2018-05-25] MEDS: ENOXAPARIN 40 MG/0.4 ML SYRINGE SQ SCH (08:26)
[2018-05-25] MEDS: FAMOTIDINE 20 MG TAB PO SCH (08:26)
[2018-05-25] MEDS: ATORVASTATIN 10 MG TAB PO SCH (08:26)
[2018-05-25] MEDS: traMADol 50 MG TAB PO SCH ×2 (08:26→12:16)
[2018-05-25] MEDS: TIMOLOL 0.5% OPHTH DROPS 5 ML BTL RIGHT EYE SCH (08:26)
[2018-05-25] MEDS: metFORMIN 500 MG TAB PO SCH (08:27)
[2018-05-25] MEDS: LINAGLIPTIN 5 MG TABLET PO SCH (08:27)
[2018-05-25] MEDS: MELOXICAM 7.5 MG TAB PO SCH (08:27)
[2018-05-25] MEDS: SODIUM CHLORIDE 0.9% 1,000 ML IV SCH (08:42)
--- NOTE | 2018-05-25 09:06 | P.PN ---
Subjective Progress Note Date: 05/25/18 Principal diagnosis: Status post right total hip arthroplasty Patient is seen today resting in her hospital bed, she appears comfortable. Patient continues to be nauseous, we discontinued most of her pain medication. She has taken tramadol occasionally, I will discontinue that at this time. Patient states she hasn't had a bowel movement since 05/21/2018, she also hasn' t had much to it at this time. She denies any headaches, chest pain or shortness breath. Objective - Vital Signs Vital signs: Vital Signs Temp 97.9 F 05/25/18 07:26 Pulse 80 05/25/18 07:26 Resp 16 05/25/18 07:26 BP 121/56 05/25/18 07:26 Pulse Ox 95 05/25/18 07:26 Intake & Output 05/24/18 05/25/18 05/25/18 18:59 06:59 18:59 Intake Total 1350 500 Balance 1350 500 Intake: Intake, IV Titration 800 Amount Lactated Ringers 1,000 ml 800 @ 50 mls/hr IV .Q20H [facility] Rx#:[id number] Oral 240 500 Blood Product 310 Rc As-3 Unit 310 [id number] Other: Voiding Method Bedside Commode Bedside Commode # Voids 1 - Exam Right lower extremity: Incision is clean, dry, and intact. The prineo tape is in good condition. There is minimal soft tissue swelling and ecchymosis surrounding the medial and lateral aspects of the incision. Calf is soft, no tenderness with palpation. Plantar flexion, dorsiflexion, EHL, FHL are intact. Sensory exam to light touch throughout the extremity is intact, dorsal pedis pulses 2+. - Labs CBC & Chem 7: 05/25/18 06:58 05/24/18 18:16 Labs: Abnormal Lab Results - Last 24 Hours (Table) 05/24/18 05/24/18 05/24/18 Range/Units 08:35 10:42 11:23 RBC (3.80-5.40) m/uL Hgb (11.4-16.0) gm/dL Hct (34.0-46.0) % Sodium (137-145) mmol/L Creatinine 0.49 L (0.52-1.04) mg/dL Glucose 110 H (74-99) mg/dL POC Glucose (mg/dL) 148 H (75-99) mg/dL Calcium 8.0 L (8.4-10.2) mg/dL Crossmatch See Detail 05/24/18 05/24/18 05/24/18 Range/Units 16:47 18:16 18:16 RBC 3.37 L (3.80-5.40) m/uL Hgb 10.0 L D (11.4-16.0) gm/dL Hct 30.2 L (34.0-46.0) % Sodium 136 L (137-145) mmol/L Creatinine 0.50 L (0.52-1.04) mg/dL Glucose 123 H (74-99) mg/dL POC Glucose (mg/dL) 145 H (75-99) mg/dL Calcium (8.4-10.2) mg/dL Crossmatch 05/24/18 05/25/18 Range/Units 20:30 06:58 RBC 3.29 L (3.80-5.40) m/uL Hgb 9.6 L (11.4-16.0) gm/dL Hct 29.5 L (34.0-46.0) % Sodium (137-145) mmol/L Creatinine (0.52-1.04) mg/dL Glucose (74-99) mg/dL POC Glucose (mg/dL) 121 H (75-99) mg/dL Calcium (8.4-10.2) mg/dL Crossmatch Assessment and Plan Plan: Assessment: 1. Postop day #3 status post right total hip arthroplasty Plan: Pain control, hold narcotics at this time GI and DVT prophylaxis, continue subcu medication Wound care instructions discussed Continue therapy Medical recommendations Encourage incentive spirometer Discharge planning: Hopeful discharge to rehab tomorrow Time with Patient: Less than 30
--- NOTE | 2018-05-25 09:15 | P.PN ---
Subjective Progress Note Date: 05/25/18 77-year-old female who underwent elective right total hip arthroplasty on 05/22/[address] Gonzalez was consulted for medical management. The patient has a history of diabetes mellitus, fibromyalgia, back pain, and anxiety. The patient is a former cigarette smoker and quit smoking in 1989. 05/23/2018 The patient was seen and examined at the bedside. The patient is awake and alert laying in bed. She states she was up this morning walking and was feeling well and her pain was minimal. She reports a couple hours later she began to have a significant increase in her pain and required medication. She states her pain at this time is tolerable. She denies chest pain or shortness of breath. She remains hemodynamically stable. She is afebrile. She is on room air with oxygen saturations greater than 92%. Incentive spirometer is at the bedside and patient reports using 10 times an hour. She is tolerating PO intake and denies nausea or vomiting. Dressing to right hip is clean dry and intact. The patient reports she is going to subacute rehab at [facility] on . 05/24/2018 Patient seen and examined at the bedside. Patient states she has been nausea all night and does not feel well this morning. She states she feels dizzy every time she gets up to ambulate. She has IV fluids infusing at 100cc/hr. She states she has been urinating often without difficulty. Patient was in the 80s on room air this morning and nasal cannula was applied. Febrile at 100.2 this AM. BP 110/71. 05/25/2018 Patient seen and examined at the bedside on rounds with Dr. Gonzalez. Patient states she has been dry heaving all night and this morning. She is receiving zofran. Patient states she has not had a bowel movement since surgery but also reports decreased oral intake due to nausea. Dressing to right hip is CDI. Patient received 1 unit RBC secondary to anemia. Hemoglobin pre-op was 13.3. Hemoglobin yesterday was 7.8. Hemoglobin this morning is 9.6. Vital signs remain stable. Objective - Vital Signs Vital signs: Vital Signs Temp 97.9 F 05/25/18 07:26 Pulse 80 05/25/18 07:26 Resp 16 05/25/18 07:26 BP 121/56 05/25/18 07:26 Pulse Ox 95 07/12/18 07:26 Intake & Output 05/24/18 05/25/18 05/25/18 18:59 06:59 18:59 Intake Total 1350 500 Balance 1350 500 Intake: Intake, IV Titration 800 Amount Lactated Ringers 1,000 ml 800 @ 50 mls/hr IV .Q20H [facility] Rx#:[id number] Oral 240 500 Blood Product 310 Rc As-3 Unit 310 [id number] Other: Voiding Method Bedside Commode Bedside Commode # Voids 1 - Exam GENERAL: This is a 77-year-old female in no apparent distress at the time of examination. Pleasant and cooperative. HEENT: Head is atraumatic, normocephalic. Pupils are equal, round, and reactive to light. Sclerae anicteric. Conjunctivae are clear. Mucus membranes of the mouth are moist. Neck is supple. RESPIRATORY: Clear to ausculation. No wheezes, rales, or rhonchi. No use of accessory muscles. Patient maintaining oxygen saturation greater than 92%. No chest wall tenderness is noted on palpation or with deep breathing. CARDIOVASCULAR: Regular rate and rhythm. S1 and S2 noted. No systolic or diastolic murmur auscultated. No JVD noted. No S3 or S4 noted. GASTROINTESTINAL: No distention noted. Abdomen soft and round. Normal active bowel sounds auscultated x 4 quadrants. No pain or tenderness noted upon palpation. INTEGUMENTARY: Dressing to right hip clean dry and intact. No drainage noted. No cyanosis. No jaundice. No rashes noted. No cellulitis noted. EXTREMITIES: 2+ peripheral pulses. No evidence of peripheral edema. No calf tenderness noted. NEUROLOGIC: Cranial nerves II-XII intact. PSYCHIATRIC: Awake, alert, and oriented X 3. Appropriate affect. Intact judgement and insight. - Labs CBC & Chem 7: 05/25/18 06:58 05/24/18 18:16 Labs: Abnormal Lab Results - Last 24 Hours (Table) 05/24/18 05/24/18 05/24/18 Range/Units 08:35 10:42 11:23 RBC (3.80-5.40) m/uL Hgb (11.4-16.0) gm/dL Hct (34.0-46.0) % Sodium (137-145) mmol/L Creatinine 0.49 L (0.52-1.04) mg/dL Glucose 110 H (74-99) mg/dL POC Glucose (mg/dL) 148 H (75-99) mg/dL Calcium 8.0 L (8.4-10.2) mg/dL Crossmatch See Detail 05/24/18 05/24/18 05/24/18 Range/Units 16:47 18:16 18:16 RBC 3.37 L (3.80-5.40) m/uL Hgb 10.0 L D (11.4-16.0) gm/dL Hct 30.2 L (34.0-46.0) % Sodium 136 L (137-145) mmol/L Creatinine 0.50 L (0.52-1.04) mg/dL Glucose 123 H (74-99) mg/dL POC Glucose (mg/dL) 145 H (75-99) mg/dL Calcium (8.4-10.2) mg/dL Crossmatch 05/24/18 05/25/18 Range/Units 20:30 06:58 RBC 3.29 L (3.80-5.40) m/uL Hgb 9.6 L (11.4-16.0) gm/dL Hct 29.5 L (34.0-46.0) % Sodium (137-145) mmol/L Creatinine (0.52-1.04) mg/dL Glucose (74-99) mg/dL POC Glucose (mg/dL) 121 H (75-99) mg/dL Calcium (8.4-10.2) mg/dL Crossmatch Assessment and Plan Plan: ASSESSMENT: Osteoarthritis, s/p right total hip arthroplasty, POD #3 Anemia, suspect due to acute blood loss, hemoglobin 7.8 down from 13.3 pre- operatively, s/p 1 unit RBC transfusion Diabetes mellitus, type II Hyperlipidemia History of fibromyalgia Nicotine dependence, in remission, patient quit smoking in 1989 PLAN: Continue postoperative surgical care per orthopedics Pain control. Avoid narcotics if possible as it may be contributing to patients nausea Resume IVF at 75cc/hr due to decreased oral intake and dry heaves Activity as tolerated Incentive spirometer 10 times an hour while awake Home meds as appropriate GI prophylaxis: Pepcid 20 mg by mouth daily DVT prophylaxis: Lovenox 40 mg subcu daily Monitor vital signs and address as appropriate Discharge planning: Subacute rehab at [facility] Further recommendations pending patient's course Nurse practitioner note has been reviewed by physician. Signing provider agrees with the documented findings, assessment, and plan of care.
[2018-05-25 11:41] LABS: Glucose,Whole Blood 102 mg/dL (75-99)
[2018-05-25] MEDS: LACTOBACILLUS ACIDOPH & BULGAR 1 EACH PACKET PO SCH (12:50)
[2018-05-25] MEDS: cefTRIAXone IN SWFI 1,000 MG/10 ML SYRINGE IVP SCH (14:46)
[2018-05-25] MEDS: AZITHROMYCIN 500 MG in DEXTROSE 5% IN WATER 250 ML IVPB SCH ×2 (14:46)
[2018-05-25] MEDS ORDERED: DEXAMETHASONE SOD PHOSPHATE 4 MG/ML 1 ML VIAL IV STA (15:11)
[2018-05-25 17:16] LABS: Glucose,Whole Blood 154 mg/dL (75-99)
[2018-05-25] MEDS: SENNOSIDES-DOCUSATE SODIUM 1 EACH TAB PO SCH (20:56)
[2018-05-25 23:21] LABS: Glucose,Whole Blood 154 mg/dL (75-99)
[2018-05-26] MEDS: SODIUM CHLORIDE 0.9% 1,000 ML IV SCH
[2018-05-26] MEDS: LACTATED RINGERS 1,000 ML IV SCH (05:03)
[2018-05-26 07:54] LABS: Glucose,Whole Blood 121 mg/dL (75-99)
--- NOTE | 2018-05-26 08:03 | XR ---
EXAMINATION TYPE: XR chest 2V DATE OF EXAM: 05/26/2018 COMPARISON: 05/24/2018 HISTORY: Hypoxia. Follow-up exam. TECHNIQUE: Frontal and lateral views of the chest are obtained. FINDINGS: The previously seen patchy right midlung opacity has resolved in the interim. There is no focal air space opacity, pleural effusion, or pneumothorax seen. The cardiac silhouette size is with in normal limits. The osseous structures are intact. Minimal degenerative changes of the thoracic s pine are noted. IMPRESSION: No acute cardiopulmonary process. Resolution of the previously seen right midlung opacit y.
[2018-05-26] MEDS: INSULIN ASPART 100 UNIT/ML 1 ML 10 ML VIAL SQ SCH ×2 (08:13→12:02)
[2018-05-26] MEDS: ATORVASTATIN 10 MG TAB PO SCH (08:17)
[2018-05-26] MEDS: ENOXAPARIN 40 MG/0.4 ML SYRINGE SQ SCH (08:17)
[2018-05-26] MEDS: cefTRIAXone IN SWFI 1,000 MG/10 ML SYRINGE IVP SCH (08:18)
[2018-05-26] MEDS: AZITHROMYCIN 500 MG in DEXTROSE 5% IN WATER 250 ML IVPB SCH ×2 (08:18)
[2018-05-26] MEDS: metFORMIN 500 MG TAB PO SCH (08:18)
[2018-05-26] MEDS: FAMOTIDINE 20 MG TAB PO SCH (08:18)
[2018-05-26] MEDS: MELOXICAM 7.5 MG TAB PO SCH (08:18)
[2018-05-26] MEDS: LINAGLIPTIN 5 MG TABLET PO SCH (08:18)
[2018-05-26] MEDS: TIMOLOL 0.5% OPHTH DROPS 5 ML BTL RIGHT EYE SCH (08:19)
[2018-05-26 08:27] LABS: Basophils % (A) 0 %; Eosinophils % (A) 1 %; HCT 32.7 % (34.0-46.0); Lymphocytes # (A) 1.4 k/uL (1.0-4.8); Lymphocytes % (A) 19 %; MCH 30.3 pg (25.0-35.0); MCHC 33.6 g/dL (31.0-37.0); MCV 90.1 fL (80.0-100.0); Mean Platelet Volume 6.8; Monocytes # (A) 0.4 k/uL (0-1.0); Monocytes % (A) 5 %; Neutrophils # (A) 5.6 k/uL (1.3-7.7); Neutrophils % (A) 74 %; Platelet Count 333 k/uL (150-450); RBC 3.63 m/uL (3.80-5.40); RDW 13.8 % (11.5-15.5); WBC 7.6 k/uL (3.8-10.6)
--- NOTE | 2018-05-26 09:24 | P.PN ---
Subjective Progress Note Date: 05/26/18 77-year-old female who underwent elective right total hip arthroplasty on 05/22/[address] Gonzalez was consulted for medical management. The patient has a history of diabetes mellitus, fibromyalgia, back pain, and anxiety. The patient is a former cigarette smoker and quit smoking in 1989. 05/23/2018 The patient was seen and examined at the bedside. The patient is awake and alert laying in bed. She states she was up this morning walking and was feeling well and her pain was minimal. She reports a couple hours later she began to have a significant increase in her pain and required medication. She states her pain at this time is tolerable. She denies chest pain or shortness of breath. She remains hemodynamically stable. She is afebrile. She is on room air with oxygen saturations greater than 92%. Incentive spirometer is at the bedside and patient reports using 10 times an hour. She is tolerating PO intake and denies nausea or vomiting. Dressing to right hip is clean dry and intact. The patient reports she is going to subacute rehab at [facility] on . 05/24/2018 Patient seen and examined at the bedside. Patient states she has been nausea all night and does not feel well this morning. She states she feels dizzy every time she gets up to ambulate. She has IV fluids infusing at 100cc/hr. She states she has been urinating often without difficulty. Patient was in the 80s on room air this morning and nasal cannula was applied. Febrile at 100.2 this AM. BP 110/71. 05/25/2018 Patient seen and examined at the bedside on rounds with Dr. Gonzalez. Patient states she has been dry heaving all night and this morning. She is receiving zofran. Patient states she has not had a bowel movement since surgery but also reports decreased oral intake due to nausea. Dressing to right hip is CDI. Patient received 1 unit RBC secondary to anemia. Hemoglobin pre-op was 13.3. Hemoglobin yesterday was 7.8. Hemoglobin this morning is 9.6. Vital signs remain stable. 05/26/2018 Patient seen and examined at the bedside. Patient is sitting up in the chair. She states her nausea has resolved. Chest x-ray from 05/24/2018 reveals patchy right mid and lower lung density which could represent areas of atelectasis or developing pneumonia. Patient was started on Rocephin and Zithromax. Repeat chest x-ray from this morning reveals resolution of right-sided opacity. Patient most likely just had atelectasis but will send the patient on a seven- day course of Zithromax at the time of discharge. She denies cough or congestion. No further episodes of fever. Denies shortness of breath. She states her pain is tolerable at this time. Hemoglobin this morning is stable at 11.0. Objective - Vital Signs Vital signs: Vital Signs Temp 98.8 F 05/25/18 23:00 Pulse 91 05/25/18 23:00 Resp 16 05/26/18 00:00 BP 134/64 05/25/18 23:00 Pulse Ox 100 05/25/18 23:00 Intake & Output 05/25/18 05/26/18 05/26/18 18:59 06:59 18:59 Intake Total 762 1050 Balance 762 1050 Intake: Intake, IV Titration 525 1050 Amount Sodium Chloride 0.9% 1, 525 1050 000 ml @ 75 mls/hr IV . [id number] [facility] Rx#:[id number] Oral 237 Other: Voiding Method Bedside Commode Bedside Commode # Voids 2 2 - Exam GENERAL: This is a 77-year-old female in no apparent distress at the time of examination. Pleasant and cooperative. HEENT: Head is atraumatic, normocephalic. Pupils are equal, round, and reactive to light. Sclerae anicteric. Conjunctivae are clear. Mucus membranes of the mouth are moist. Neck is supple. RESPIRATORY: Clear to ausculation. No wheezes, rales, or rhonchi. No use of accessory muscles. Patient maintaining oxygen saturation greater than 92%. No chest wall tenderness is noted on palpation or with deep breathing. CARDIOVASCULAR: Regular rate and rhythm. S1 and S2 noted. No systolic or diastolic murmur auscultated. No JVD noted. No S3 or S4 noted. GASTROINTESTINAL: No distention noted. Abdomen soft and round. Normal active bowel sounds auscultated x 4 quadrants. No pain or tenderness noted upon palpation. INTEGUMENTARY: Dressing to right hip clean dry and intact. No drainage noted. No cyanosis. No jaundice. No rashes noted. No cellulitis noted. EXTREMITIES: 2+ peripheral pulses. No evidence of peripheral edema. No calf tenderness noted. NEUROLOGIC: Cranial nerves II-XII intact. PSYCHIATRIC: Awake, alert, and oriented X 3. Appropriate affect. Intact judgement and insight. - Labs CBC & Chem 7: 05/26/18 07:58 05/24/18 18:16 Labs: Abnormal Lab Results - Last 24 Hours (Table) 05/25/18 05/25/18 05/25/18 Range/Units 11:11 17:03 22:52 RBC (3.80-5.40) m/uL Hgb (11.4-16.0) gm/dL Hct (34.0-46.0) % POC Glucose (mg/dL) 102 H 154 H 154 H (75-99) mg/dL 05/26/18 05/26/18 Range/Units 07:20 07:58 RBC 3.63 L (3.80-5.40) m/uL Hgb 11.0 L (11.4-16.0) gm/dL Hct 32.7 L (34.0-46.0) % POC Glucose (mg/dL) 121 H (75-99) mg/dL Assessment and Plan Plan: ASSESSMENT: Osteoarthritis, s/p right total hip arthroplasty, POD #4 Anemia, suspect due to acute blood loss, hemoglobin 7.8 down from 13.3 pre- operatively, s/p 1 unit RBC transfusion Diabetes mellitus, type II Hyperlipidemia History of fibromyalgia Nicotine dependence, in remission, patient quit smoking in 1989 Pneumonia versus atelectasis, cxr reveals right mid and lower lung density which could represent atelectasis or pneumonia on 05/24/2018, repeat CXR reveals resolution of opacity, patient was hypoxic on room air with sats of 85% and febrile two days ago, however she denies shortness of breath, cough, congestion , or sputum sputum, no further episodes of fever, suspect due to atelectasis as patient does not clinically have s/s of pneumonia, an unexpected but potential outcome of surgery, especially due to patients decreased mobility due to post operative nausea lasting greater than 24 hours PLAN: Continue postoperative surgical care per orthopedics Discontinue IV fluids Patient to be DC with 7 day course of Zithromax Activity as tolerated Incentive spirometer 10 times an hour while awake Home meds as appropriate GI prophylaxis: Pepcid 20 mg by mouth daily DVT prophylaxis: Lovenox 40 mg subcu daily Monitor vital signs and address as appropriate Discharge planning: Subacute rehab at [facility] Further recommendations pending patient's course Patient is cleared for discharge from a medical standpoint when cleared by attending physician Nurse practitioner note has been reviewed by physician. Signing provider agrees with the documented findings, assessment, and plan of care.
[2018-05-26 09:46] VITALS: BP 132/82; PULSE 98; RESP 17; TEMP 98.6
--- NOTE | 2018-05-26 10:11 | P.PN ---
Subjective Progress Note Date: 05/26/18 Principal diagnosis: Status post right total hip arthroplasty Patient is seen today resting in her hospital bed, she appears comfortable. Patient's symptoms have improved significantly. She's been started on antibiotics for possible pneumonia, they are thinking this is likely atelectasis. She denies any headaches, chest pain or shortness breath. Objective - Vital Signs Vital signs: Vital Signs Temp 98.6 F 05/26/18 07:00 Pulse 98 05/26/18 07:00 Resp 17 05/26/18 07:00 BP 132/82 05/26/18 07:00 Pulse Ox 93 L 05/26/18 07:00 Intake & Output 05/25/18 05/26/18 05/26/18 18:59 06:59 18:59 Intake Total 762 1050 Balance 762 1050 Intake: Intake, IV Titration 525 1050 Amount Sodium Chloride 0.9% 1, 525 1050 000 ml @ 75 mls/hr IV . [id number] [facility] Rx#:[id number] Oral 237 Other: Voiding Method Bedside Commode Bedside Commode Bedside Commode # Voids 2 2 - Exam Right lower extremity: Incision is clean, dry, and intact. The prineo tape is in good condition. There is minimal soft tissue swelling and ecchymosis surrounding the medial and lateral aspects of the incision. Calf is soft, no tenderness with palpation. Plantar flexion, dorsiflexion, EHL, FHL are intact. Sensory exam to light touch throughout the extremity is intact, dorsal pedis pulses 2+. - Labs CBC & Chem 7: 05/26/18 07:58 05/24/18 18:16 Labs: Abnormal Lab Results - Last 24 Hours (Table) 05/25/18 05/25/18 05/25/18 Range/Units 11:11 17:03 22:52 RBC (3.80-5.40) m/uL Hgb (11.4-16.0) gm/dL Hct (34.0-46.0) % POC Glucose (mg/dL) 102 H 154 H 154 H (75-99) mg/dL 05/26/18 05/26/18 Range/Units 07:20 07:58 RBC 3.63 L (3.80-5.40) m/uL Hgb 11.0 L (11.4-16.0) gm/dL Hct 32.7 L (34.0-46.0) % POC Glucose (mg/dL) 121 H (75-99) mg/dL Assessment and Plan Plan: Assessment: 1. Postop day #4 status post right total hip arthroplasty Plan: Pain control, hold narcotics at this time GI and DVT prophylaxis, we'll discharge on lovenox Wound care instructions discussed Continue therapy Medical recommendations Encourage incentive spirometer Discharge planning: Hopeful discharge to rehab today Time with Patient: Less than 30
--- NOTE | 2018-05-26 10:14 | P.DS ---
Providers Date of admission: 05/22/18 05:33 Expected date of discharge: 05/26/18 Attending physician: Rashid Livingston Consults: 05/22/18 09:38 Consult Physician Routine Consulting Provider: Catrachito Gonzalez Reason/Comments: Medical management Do you want consulting provider notified?: Yes Primary care physician: Catrachito Gonzalez [facility] Course: Date of admission: 05/22/2018 Date of discharge: 05/26/2018 Admission diagnosis: Status post right total hip arthroplasty Discharge diagnosis: Same Attending physician: Dr. Livingston Surgical procedures: Right total hip arthroplasty Brief history: Patient is a 77-year-old female with a history of progressive primary right hip osteoarthritis. At this point patient has failed conservative treatment measures and has opted to proceed with a elective right total hip arthroplasty. Hospital course: Details of patient's surgery can be found in operative report. Patient tolerated the procedure well and was subsequently transported to orthopedic floor. Patient's orthopeidc and medical care was provided daily. Patient had daily laboratory tests performed for evaluation of overall blood counts. Patient had daily physical therapy to include strengthening range of motion as well as education with walker ambulation. Patient was treated with Lovenox for their postoperative DVT prophylaxis during their inpatient stay. Patient was noted to have a relatively uneventful postoperative course. Patient reported satisfactory pain control with oral pain medications by postoperative day 0. Patient showed satisfactory progress with physical therapy. Patient moved steadily through the program and had no difficulty meeting the goals by postoperative day 4. Given patient's otherwise satisfactory course and having met physical therapy goals, plan is to discharge patient rehab on postoperative day 4. Discharge condition/disposition: Patient will be discharged to rehab in stable condition. Discharge medications: Instructions are given on resumption of patient's normal daily medications per primary care recommendation, in addition patient will be prescribed Lovenox, azithromycin. Discharge instructions: 1. Wound care and infection precautions, keep incision dry and covered while showering, no lotions, creams, moisturizers. No soaking, tubs, pools, hottubs. Do not scrub over the incision. 2. Weight-bear as tolerated with walker / cane until follow-up. 3. Ice and elevate when necessary. Do not exceed 20 minutes per hour with ice pack. 4. Utilize compression sleeve until seen at first follow up appointment. 5. Visiting nursing care. 6. Home physical therapy. 7. Pain meds and anticoagulants per prescription. 8. Pain medication has potential to cause constipation. Increase oral fluid and fiber intake. Contact primary care provider if you have not had a bowel movement within 48 hours after discharge 9. No anti-inflammatory medication until discussed at first post operative visit, this including Motrin, Aleve, Mobic, Diclofenac 10. Follow up in office at 2 weeks postop with French Curtis PA-C 11. Follow up with your primary care doctor 7-10 days after discharge. 12. Contact [facility] with any questions, . Procedures: Right total hip arthroplasty Patient Condition at Discharge: Good Plan - Discharge Summary Discharge Rx Participant: No New Discharge Prescriptions: New Azithromycin [Zithromax] 500 mg PO DAILY #7 tab Enoxaparin [Lovenox] 40 mg SQ DAILY #24 syringe Continue L.acidoph/B.long/L.plant/B.lac [Probiotic Acidophilus Beads] 1 tab PO DAILY Aspirin 81 mg PO DAILY metFORMIN HCL [Glucophage] 500 mg PO QAM Timolol 0.5% Ophth Soln [Timoptic 0.5% Ophth Soln] 1 drop RIGHT EYE DAILY Polyethylene Glycol 3350 [Miralax] 17 gm PO DAILY PRN PRN Reason: Constipation sitaGLIPtin [Januvia] 100 mg PO DAILY Simvastatin [Zocor] 20 mg PO DAILY Multivit-Min/FA/Lycopen/Lutein [Centrum Silver Tablet] 1 tab PO DAILY Discontinued Methylprednisone Injection 1 dose PO DIRECTED Discharge Medication List Aspirin 81 mg PO DAILY 11/13/14 [History] L.acidoph/B.long/L.plant/B.lac [Probiotic Acidophilus Beads] 1 tab PO DAILY [History] metFORMIN HCL [Glucophage] 500 mg PO QAM 02/13/15 [History] Multivit-Min/FA/Lycopen/Lutein [Centrum Silver Tablet] 1 tab PO DAILY 05/12/18 [ History] Polyethylene Glycol 3350 [Miralax] 17 gm PO DAILY PRN 05/12/18 [History] Simvastatin [Zocor] 20 mg PO DAILY 05/12/18 [History] Timolol 0.5% Ophth Soln [Timoptic 0.5% Ophth Soln] 1 drop RIGHT EYE DAILY [History] sitaGLIPtin [Januvia] 100 mg PO DAILY 05/12/18 [History] Azithromycin [Zithromax] 500 mg PO DAILY #7 tab 05/26/18 [Rx] Enoxaparin [Lovenox] 40 mg SQ DAILY #24 syringe 05/26/18 [Rx] Follow up Appointment(s)/Referral(s): Catrachito Gonzalez DO [Primary Care Provider] - 06/02/18 11:00 am Ray Curtis PAC [[employer]] - 06/07/18 2:10 pm Activity/Diet/Wound Care/Special Instructions: Orthopedic Discharge Instructions: 1. Wound care and infection precautions, keep incision dry and covered while showering, no lotions, creams, moisturizers. No soaking, pools, hot tubs. Do not scrub over incision. 2. Weight-bear as tolerated with walker / cane until follow-up. 3. Ice and elevate when necessary. Do not exceed 20 minutes per hour with ice pack. 4. Utilize compression sleeve until seen at first follow up appointment. 5. Visiting nursing care. 6. Home physical therapy. 7. Pain meds and anticoagulants per prescription. 8. Pain medication has potential to cause constipation. Increase oral fluid and fiber intake. Contact primary care provider if you have not had a bowel movement within 48 hours after discharge. 9. No anti-inflammatory medication until discussed at first post operative visit, this including Motrin, Aleve, Mobic, Diclofenac. 10. Follow up in office at 2 weeks postop with French Curtis PA-C 11. Follow up with your primary care doctor 7-10 days after discharge. 12. Contact [facility] with any questions, . Discharge Disposition: HOME WITH HOME HEALTH SERVICES
[2018-05-26 11:21] LABS: Glucose,Whole Blood 153 mg/dL (75-99)
[2018-05-26] MEDS: LACTOBACILLUS ACIDOPH & BULGAR 1 EACH PACKET PO SCH (12:00)
--- NOTE | 2018-05-26 13:36 | CDI ---
Last Revision, October 2017 Documentation Clarification Form Date: 05/26/2018 12:00:00 AM From: Tawana Oseguera RN, CCDS Admit Date: 05/22/2018 5:33:00 AM Patient Name: Deepti Wahl Visit Number: [id number] Discharge Date: ATTENTION: The Clinical Documentation Specialists (CDI) and [facility] Coding Staff appreciate your assistance in clarifying documentation. Please respond to the clarification below the line at the bottom and electronically sign. The CDI & [facility] Coding staff will review the response and follow-up if needed. Please note: Queries are made part of the Legal Health Record. If you have any questions, please contact the author of this message via ITS. Dr. Catrachito Gonzalez Atelectasis is documented in your progress note on 05/26/18. Patients Admitting Diagnosis: Progressive primary right hip osteoarthritis Post-Operative Diagnosis: Same Procedure performed: Right Total Hip Arthroplasty History/Risk Factors: Diabetes Mellitus, Fibromyalgia Clinical Indicators: 05/24/18 post op day 2: She had nausea and does not feel well. She feels dizzy every time she ambulates. The patient was in the 80's on room air this morning. Vital signs: 110/71 94 18 100.2. Chest x-ray: (progress notes) Suspect due to atelectasis as patient does not clinically have s/s of pneumonia. Treatment: Zithromax PO Incentive spirometer per orders IV Fluids Monitor O2 sat's (titrate) Monitor vital signs and address as appropriate In order to accurately reflect this patients severity of illness, please clarify if the post-operative diagnosis is: An expected post-procedural or post-surgical condition; Integral to the procedure; Inherent to the procedure; An unexpected post-procedural or post-surgical condition related to surgical care; Other, please specify Unable to determine Please continue to document in your progress notes and discharge summary in order to capture severity of illness and risk of mortality. Include clinical findings that support your diagnosis. MTDD
== END 2018-05-26 13:22 | disposition home health service (06) | DRG 470 ==
LOC: 2ORMAIN 05:33 → 3SUR 09:49
PROVIDERS: ADMIT Orthopaedic Surgery; ATTEND Orthopaedic Surgery
PROC: 0SR901A Replacement of Right Hip Joint with Metal Synthetic Substitute, Uncemented, Open Approach (ICD-10-PCS; principal; 2018-05-22 07:30)
PROC: 30233N1 Transfusion of Nonautologous Red Blood Cells into Peripheral Vein, Percutaneous Approach (ICD-10-PCS; 2018-05-24)
DX: M16.11 Unilateral primary osteoarthritis, right hip (principal); D62 Acute posthemorrhagic anemia; J98.11 Atelectasis; E78.5 Hyperlipidemia, unspecified; E11.9 Type 2 diabetes mellitus without complications; I10 Essential (primary) hypertension; M79.7 Fibromyalgia; F41.9 Anxiety disorder, unspecified; F17.201 Nicotine dependence, unspecified, in remission; Z79.84 Long term (current) use of oral hypoglycemic drugs; Z79.82 Long term (current) use of aspirin; Z79.899 Other long term (current) drug therapy
CPT/HCPCS: 71046; 73501; 80048; 83036; 85025; 86850; 86900; 86901; 86920; 88300

== ENCOUNTER → 2019-01-19 | Outpatient (CLI) | payer MEDICARE, BC ==
--- NOTE | 2019-01-19 10:16 | US ---
EXAMINATION TYPE: US abdomen complete DATE OF EXAM: 01/19/2019 COMPARISON: NONE CLINICAL HISTORY: K81.0 Acute cholecystitis. Pt states bloating, diarrhea, occasional ABD pain EXAM MEASUREMENTS: Liver Length: 15.9 cm Gallbladder Wall: 0.2 cm CBD: 0.6 cm Spleen: 9.8 cm Right Kidney: 10.7 x 3.8 x 4.7 cm Left Kidney: 10.8 x 5.0 x 4.7 cm Pancreas: wnl, tail obscured by overlying bowel gas Liver: Echogenic in appearance Gallbladder: Probable adenomyomatosis anterior wall Evidence for sonographic Duarte's sign: No CBD: wnl Spleen: wnl Right Kidney: wnl Left Kidney: wnl Upper IVC: wnl Abd Aorta: wnl IMPRESSION: 1. Liver is echogenic in appearance which is a nonspecific finding can be seen with fatty infiltratio n, diffuse hepatocellular disease or hepatitis. 2. Findings involving the gallbladder nonspecific but most typical of adenomyomatosis.
== END | disposition home or self-care (01) ==
LOC: RADUSWWP 09:22
PROVIDERS: ATTEND Family Medicine
DX: K81.0 Acute cholecystitis (principal)
CPT/HCPCS: 76700

== ENCOUNTER → 2019-05-10 | Outpatient (CLI) | payer MEDICARE, BC ==
--- NOTE | 2019-05-10 16:14 | CT ---
EXAMINATION TYPE: CT abdomen pelvis wo con DATE OF EXAM: 05/10/2019 COMPARISON: None HISTORY: 78-year-old female diverticulitis, RLQ pain, bloating CT DLP: 418.7 mGycm. Automated exposure control for dose reduction was used. TECHNIQUE: Contiguous axial scanning of the abdomen and pelvis without IV contrast. Coronal and sagit cuauhtemoc reconstructions performed. FINDINGS: Heart normal size without pericardial effusion. Mitral annular calcifications are present. Lung bases clear without pleural effusion. Subcentimeter hypodensity posterior right liver lobe too small for accurate CT characterization, prob able cyst. The liver is mildly enlarged at 18.8 cm. Noncontrast appearance of the gallbladder, adrenal glands, left kidney, spleen, and pancreas show no gross abnormality. Extrarenal pelvis right kidney. Moderate atherosclerotic calcifications infrarenal abdominal aorta without aneurysm. No dilated small bowel, free fluid, or free air. No mesenteric or retroperitoneal lymphadenopathy. No secondary signs of acute appendicitis though the appendix itself is not discretely visualized. Scattered mild to moderate stool within the colon in mild sigmoid diverticulosis. No pericolonic infl ammatory change identified. Bladder is nondistended. Uterus and left ovary are visualized. Right ovary not well seen due to clust ered bowel loops just adjacent. Multiple pelvic phlebolith. There is bulging laxity of the levator an i musculature suggesting pelvic floor relaxation. No abnormal fluid collection in the pelvis or pelvi c lymphadenopathy. Bones: Limited visualization of the pelvis due to metal hardware artifact relating to the patient's r ight total hip arthroplasty. There is moderate degenerative change at the left hip. Moderate degenera tive disc disease lower lumbar spine. IMPRESSION: Mild sigmoid diverticulosis without evidence for acute diverticulitis.
== END | disposition home or self-care (01) ==
LOC: RADCTMAIN 12:58
PROVIDERS: ATTEND Family Medicine
DX: K57.30 Diverticulosis of large intestine without perforation or abscess without bleeding (principal)
CPT/HCPCS: 74176